=== PATIENT | female | born 1960 | race Caucasian/White ===

== ENCOUNTER 2025-01-23 11:40 | Inpatient (IN) | payer MEDICARE ==
[~2025-01-23] VITALS: Ht 170.2 cm; Wt 78.9 kg
[2025-01-23 12:00] VITALS: O2SAT 99
[2025-01-23 12:57] LABS: BASOPHILS % 1.2 % (0.0-2.0); EOSINOPHILS % 2.8 % (0.0-5.0); HEMATOCRIT. 41.8 % (36.0-48.0); HEMOGLOBIN. 14.1 g/dL (12.0-16.0); LYMPHOCYTES % 36.9 % (20.0-50.0); MEAN PLATELET VOLUME 7.8 fl (7.4-10.4); MONOCYTES % 8.0 % (2.0-8.0); NEUTROPHILS % 51.1 % (40.0-76.0); PLATELET 194 x1000/uL (130-400); RED BLOOD CELL COUNT 4.72 mill/uL (4.2-5.4); RED CELL DISTRIBUTION WIDTH 13.3 % (11.6-14.6)
[2025-01-23 13:08] LABS: CREATININE 0.8 mg/dL (0.6-1.0); UREA NITROGEN BLOOD 13 mg/dL (9-23)
[2025-01-23 13:44] LABS: TROPONIN I HIGH SENSITIVITY < 4 ng/L (3.0-34)
[2025-01-23 14:12] LABS: T4 FREE 1.38 ng/dL (0.89-1.76)
[2025-01-23] MEDS ORDERED: CLONIDINE 0.1MG TABLET PO PRN (16:00)
[2025-01-23] MEDS ORDERED: ACETAMINOPHEN 325MG TABLET PO PRN ×2 (16:00)
[2025-01-23] MEDS ORDERED: ONDANSETRON HCL 4MG/2ML INJ IV PRN (16:00)
[2025-01-23] MEDS ORDERED: IPRATROPIUM/ALBUTEROL 0.5-3(2.5)MG/3ML NEB HHN PRN (16:00)
[2025-01-23] MEDS ORDERED: DOCUSATE SODIUM 100MG CAPSULE PO PRN (16:00)
[2025-01-23 17:38] LABS: TROPONIN I HIGH SENSITIVITY < 4 ng/L (3.0-34)
[2025-01-23 18:00] VITALS: BP 131/43; PULSE 47; RESP 18; TEMP 35.6; TEMP 35.6396; O2SAT 98
[2025-01-23] MEDS ORDERED: NEBI5TAB9 PO (18:41)
[2025-01-23] MEDS ORDERED: CLOP75TA33 PO (18:41)
[2025-01-23] MEDS ORDERED: ASPI-1406 PO (18:41)
[2025-01-23] MEDS ORDERED: LEVO50TA8 PO (18:41)
[2025-01-23] MEDS ORDERED: NITR0.4T49 SL (18:41)
[2025-01-23] MEDS ORDERED: ATOR40TA70 PO (18:41)
[2025-01-23 20:00] VITALS: BP 103/45; PULSE 54; RESP 18; TEMP 36.5; O2SAT 96
[2025-01-23 20:51] LABS: CLARITY URINE CLEAR (CLEAR); GLUCOSE URINE NEGATIVE (NEGATIVE); KETONES URINE NEGATIVE (NEGATIVE); LEUKOCYTE ESTERASE URINE 2+ (NEGATIVE); NITRITE URINE NEGATIVE (NEGATIVE); OCCULT BLOOD URINE NEGATIVE (NEGATIVE); PH URINE 5.0 (4.5-8.0); PROTEIN URINE NEGATIVE (NEGATIVE); SPECIFIC GRAVITY URINE 1.013 (1.005-1.030); UROBILINOGEN URINE 0.2 E.U./dL (0.2-1.0)
[2025-01-23 21:03] LABS: *AMPHETAMINES SCREEN URINE NEGATIVE (NEGATIVE); *BARBITURATES SCREEN URINE NEGATIVE (NEGATIVE); *BENZODIAZEPINES SCREEN URINE NEGATIVE (NEGATIVE)
[2025-01-23 21:04] LABS: *COCAINE SCREEN URINE NEGATIVE (NEGATIVE); CANNABINOID URINE SCREEN NEGATIVE (NEGATIVE); ECSTASY MDMA SCREEN URINE NEGATIVE (NEGATIVE); METHADONE URINE SCREEN NEGATIVE (NEGATIVE); OPIATES URINE SCREEN NEGATIVE (NEGATIVE); PHENCYCLIDINE URINE SCREEN NEGATIVE (NEGATIVE)
[2025-01-23 21:20] LABS: COLOR URINE STRAW (YELLOW)
[2025-01-23 21:25] LABS: RBC URINE NONE SEEN /hpf (0-2); SQUAMOUS EPITHELIAL CELL URINE FEW /lpf (RARE/1+)
[2025-01-23 21:26] LABS: BACTERIA URINE TRACE
[2025-01-23] MEDS: ATORVASTATIN CALCIUM 40MG TABLET PO SCH (21:57)
[2025-01-23] MEDS: DEXT 5%/0.45% NACL 1000ML 1,000 ML IV SCH (21:58)
[2025-01-24] VITALS: BP 102/48; PULSE 55; RESP 18; TEMP 36.3; O2SAT 97
[2025-01-24 04:00] VITALS: BP 115/68; PULSE 51; RESP 17; TEMP 36.4; O2SAT 97
[2025-01-24 08:00] VITALS: BP 121/80; PULSE 60; RESP 20; TEMP 36.4; O2SAT 98
[2025-01-24] MEDS: LEVOTHYROXINE SODIUM 50MCG TABLET PO SCH (08:44)
[2025-01-24] MEDS: FAMOTIDINE 20MG/2ML VIAL IV SCH (08:44)
[2025-01-24] MEDS: ASPIRIN 81MG TABLET PO SCH (08:45)
[2025-01-24] MEDS ORDERED: HEPARIN 1000 UNITS/ML 10ML ONE ×2 (09:10→10:40)
[2025-01-24] MEDS ORDERED: VERAPAMIL HCL 2.5 MG/1 ML 2ML VIAL IV ONE (09:10)
[2025-01-24] MEDS ORDERED: LIDOCAINE HCL 1% 20ML VIAL ONE (09:10)
[2025-01-24] MEDS ORDERED: DIPHENHYDRAMINE 50MG/ML VIAL ONE (09:10)
[2025-01-24] MEDS ORDERED: IODIXANOL 320MG/ML 100 ML BOTTLE IV ONE (09:10)
[2025-01-24] MEDS ORDERED: FENTANYL CITRATE/PF 50MCG/ML 2ML VIAL ONE (09:54)
[2025-01-24] MEDS ORDERED: MIDAZOLAM HCL 2 MG/2 ML VIAL ONE (09:55)
[2025-01-24] MEDS ORDERED: ATROPINE SULFATE 1MG/10ML SYR ONE (11:22)
[2025-01-24] MEDS ORDERED: EPINEPHRINE 0.1MG/ML (1:10,000) 10ML SYR ONE (11:22)
[2025-01-24] MEDS ORDERED: CLOPIDOGREL 75MG TABLET ONE (11:26)
[2025-01-24] MEDS ORDERED: ATROPINE SULFATE 1MG/10ML SYR IV PRN (12:15)
[2025-01-24] MEDS ORDERED: SODIUM CHLORIDE 0.45% 250 ML IV ONE (12:15)
[2025-01-24] MEDS ORDERED: ACETAMINOPHEN 325MG TABLET PO PRN (12:15)
[2025-01-24 16:00] VITALS: BP 122/75; PULSE 55; RESP 20; TEMP 36.5; O2SAT 99
[2025-01-24 20:00] VITALS: BP 115/63; PULSE 51; RESP 20; TEMP 37.1; O2SAT 98
[2025-01-24 22:06] LABS: BASOPHILS % 1.0 % (0.0-2.0); EOSINOPHILS % 2.7 % (0.0-5.0); HEMATOCRIT. 40.1 % (36.0-48.0); HEMOGLOBIN. 13.6 g/dL (12.0-16.0); LYMPHOCYTES % 32.6 % (20.0-50.0); MEAN PLATELET VOLUME 7.6 fl (7.4-10.4); MONOCYTES % 8.2 % (2.0-8.0); NEUTROPHILS % 55.5 % (40.0-76.0); PLATELET 175 x1000/uL (130-400); RED BLOOD CELL COUNT 4.51 mill/uL (4.2-5.4); RED CELL DISTRIBUTION WIDTH 13.4 % (11.6-14.6)
[2025-01-24 22:23] LABS: CREATININE 1.0 mg/dL (0.6-1.0); TRIGLYCERIDE 96.0 mg/dL (0-150); UREA NITROGEN BLOOD 14.0 mg/dL (9-23)
[2025-01-24 22:24] LABS: LDL CHOLESTEROL 59.0 mg/dL (5-100)
[2025-01-24 22:28] LABS: VITAMIN B12 SERUM 552 pg/mL (211-911)
[2025-01-25] VITALS: BP 119/53; PULSE 51; RESP 20; TEMP 36.9; O2SAT 97
[2025-01-25 04:00] VITALS: BP 112/54; PULSE 50; RESP 20; TEMP 36.6; O2SAT 98
[2025-01-25 07:08] LABS: BASOPHILS % 0.9 % (0.0-2.0); EOSINOPHILS % 2.7 % (0.0-5.0); HEMATOCRIT. 43.0 % (36.0-48.0); HEMOGLOBIN. 14.5 g/dL (12.0-16.0); LYMPHOCYTES % 32.7 % (20.0-50.0); MEAN PLATELET VOLUME 7.8 fl (7.4-10.4); MONOCYTES % 9.3 % (2.0-8.0); NEUTROPHILS % 54.4 % (40.0-76.0); PLATELET 168 x1000/uL (130-400); RED BLOOD CELL COUNT 4.82 mill/uL (4.2-5.4); RED CELL DISTRIBUTION WIDTH 13.8 % (11.6-14.6)
[2025-01-25 07:10] LABS: CREATININE 0.9 mg/dL (0.6-1.0)
[2025-01-25 07:11] LABS: UREA NITROGEN BLOOD 12 mg/dL (9-23)
[2025-01-25 08:00] VITALS: BP 135/65; PULSE 75; RESP 19; TEMP 36.6; O2SAT 99
[2025-01-25] MEDS: CLOPIDOGREL 75MG TABLET PO SCH (08:56)
[2025-01-25 09:11] VITALS: BP 136/71; PULSE 83; RESP 20; TEMP 97.5
[2025-01-25 10:30] VITALS: BP 116/73; PULSE 86; RESP 20; TEMP 36.2; O2SAT 99
[2025-01-25] MEDS ORDERED: ATOR-2 MT ×2 (10:39→10:44)
[2025-01-25] MEDS ORDERED: SPIR25TA6 MT ×2 (10:39→10:44)
[2025-01-25] MEDS ORDERED: CLOP75TA33 PO (10:44)
[2025-01-25] MEDS ORDERED: ASPI-1406 PO (10:44)
[2025-01-25] MEDS ORDERED: LEVO50TA8 PO (10:44)
[2025-01-25] MEDS ORDERED: NITR0.4T49 SL (10:44)
== END 2025-01-25 10:55 | disposition home or self-care (01) | DRG 321 ==
LOC: ER 13:17 → 7WST 14:28 → EDBEDREQTM 14:30 → EDBEDREQ 14:30 → ENRESERV 17:21
PROVIDERS: ADMIT Internal Medicine; ATTEND Internal Medicine
PROC: 027136Z Dilation of Coronary Artery, Two Arteries with Three Drug-eluting Intraluminal Devices, Percutaneous Approach (ICD-10-PCS; principal; 2025-01-24)
PROC: B240ZZ3 Ultrasonography of Single Coronary Artery, Intravascular (ICD-10-PCS; 2025-01-24)
PROC: 4A023N7 Measurement of Cardiac Sampling and Pressure, Left Heart, Percutaneous Approach (ICD-10-PCS; 2025-01-24)
PROC: B211YZZ Fluoroscopy of Multiple Coronary Arteries using Other Contrast (ICD-10-PCS; 2025-01-24)
DX: I25.110 Atherosclerotic heart disease of native coronary artery with unstable angina pectoris (principal); I50.33 Acute on chronic diastolic (congestive) heart failure; I11.0 Hypertensive heart disease with heart failure; Z79.02 Long term (current) use of antithrombotics/antiplatelets; E03.9 Hypothyroidism, unspecified; E78.5 Hyperlipidemia, unspecified; R00.1 Bradycardia, unspecified; F17.210 Nicotine dependence, cigarettes, uncomplicated; R20.0 Anesthesia of skin; Z79.899 Other long term (current) drug therapy; I25.2 Old myocardial infarction
CPT/HCPCS: 36415; 71045; 80048; 80061; 80305; 81003; 82607; 83880; 84439; 84443; 84484; 85025; 85347; 85379; 92928; 92978; 93005; 93306; 93458; 99285; C1725; C1753; C1769; C1887; C1893; J0461; J1200; J1308; J1644; J2003; J2250; J3010; J3490; Q9967; C1874